=== PATIENT | female | born 1975 | race Caucasian/White ===

== ENCOUNTER 2021-11-29 21:27 | Emergency (ER) | payer OTHER, SELFPAY ==
--- NOTE | ~2021-11-29 | CT_ITS ---
EXAMINATION: CT HEAD WITHOUT CONTRAST CLINICAL INFORMATION: Severe headache, dizzy, hypertension. COMPARISON: None TECHNIQUE: Contiguous axial imaging was performed from the skull base to vertex without intravenous administration of contrast. Coronal and sagittal reformatted images were obtained. This CT examination was performed using dose optimization techniques as appropriate, variously including the following: *Automated exposure control *Adjustment of mA and/or kV according to patient size (this includes techniques or standardized protocols for targeted exams where dose is matched to indication/reason for exam; i.e. extremities or head) *Use of iterative reconstruction technique DLP: 695 mGy-cm FINDINGS: There is no evidence of acute intracranial hemorrhage or territorial infarction. No abnormal mass effect or midline shift is seen. [place] to white matter differentiation is well preserved. No extra-axial fluid collections are identified. The ventricles are normal in size. There is no abnormal attenuation within the brain parenchyma. The osseous structures and soft tissues are normal. Mild to moderate right foraminal, bilateral ethmoid, right sphenoid and right maxillary sinus mucosal thickening is seen. No air-fluid levels. The mastoid air cells are clear. CT/CT head/brain wo IV con IMPRESSION: 1. No acute intracranial pathology. 2. Mild to moderate inflammatory changes in the paranasal sinuses as detailed above.
--- NOTE | 2021-11-29 21:30 | ECG_ITS ---
Test Reason : DIZZY Blood Pressure : / mmHG Vent. Rate : 071 BPM Atrial Rate : 071 BPM P-R Int : 160 ms QRS Dur : 072 ms QT Int : 396 ms P-R-T Axes : 051 021 053 degrees QTc Int : 430 ms Normal sinus rhythm Normal ECG No previous ECGs available Referred By: Generic ED Physician Electronically Signed By:SUSIE HUTSON
[2021-11-29 21:32] VITALS: BP 206/77; PULSE 75; RESP 18; TEMP 37; O2SAT 100; BMI 30.2
[2021-11-29 21:58] LABS: Basophils Absolute Auto 0.1 X10*3/uL (0.0-0.2); Basophils Percent Auto 0.9 % (0-2); Eosinophils Absolute Auto 0.1 X10*3/uL (0.0-0.4); Eosinophils Percent Auto 1.2 % (0-4); Hematocrit 42.6 % (37.0-47.0); Imm Gran Abs Auto 0.02 X10*3/uL (0.00-0.03); Imm Gran Pct Auto 0.3 % (0.0-0.4); MANUAL DIFF FLAG NO; Mean Corpuscular HGB Conc 32.9 g/dl (31.0-35.0); Mean Corpuscular Hemoglobin 27.6 pg (27.0-33.0); Mean Corpuscular Volume 83.9 fL (80.0-98.0); Mean Platelet Volume 9.9 fL (9.4-12.3); Monocytes Absolute Auto 0.6 X10*3/uL (0.1-1.2); Monocytes Percent Auto 10.7 % (2-11); Neutrophils Absolute Auto 3.1 x10*3/uL (2.0-8.3); Neutrophils Percent Auto 52.9 % (45-73); Platelet Count 307 X10*3/uL (160-400); Red Blood Count 5.08 X10*6/uL (4.20-5.50); Red Cell Distribution Width 13.3 % (11.0-16.0); White Blood Count 5.8 X10*3/uL (4.8-10.8)
[2021-11-29 22:02] VITALS: BP 176/111; PULSE 72
[2021-11-29 22:13] LABS: Alanine Aminotransferase 21 U/L (0-31); Albumin Level 4.5 g/dL (3.5-5.0); Alkaline Phosphatase 102 U/L (39-117); Anion Gap 14 (12-20); Aspartate Amino Transferase 17 U/L (5-31); Bilirubin Direct < 0.2 mg/dL (0.0-0.5); Bilirubin Total 0.2 mg/dL (0.0-1.0); Blood Urea Nitrogen 13 mg/dL (9-16); Calcium 9.3 mg/dL (8.4-10.2); Carbon Dioxide 24 mmol/L (22-29); Chloride 104 mmol/L (96-108); Estimated Glomerular Filt Rate > 60; Glucose Random 111 mg/dL (60-115); Sodium 138 mmol/L (135-145); Total Protein 7.7 g/dL (6.5-8.0)
[2021-11-29 22:18] LABS: Troponin-I High Sensitivity 6.9 ng/L (<3.5-17.0)
--- NOTE | 2021-11-29 23:01 | ED_ITS ---
HPI - Headache General Chief Complaint: Headache Stated Complaint: Severe headache, dizzy, almost passed out Time Seen by Provider: 11/29/21 22:03 Source: patient Mode of arrival: ambulatory History of Present Illness HPI Narrative: 46-year-old female reports a history of migraines and denies any prior history of hypertension and is currently on clonidine/hydroxyzine/Raylar(sp?) And reports that approximately 17:00 this evening she developed acute onset of headache that she states encompasses her whole head with mild not but denies any photosensitivity which she would typically expect to get with her migraines. She otherwise denies any fever, chills, sore throat, abdominal pain, urinary symptoms. She denies any unilateral weakness/numbness/tingling or visual disturbances. Related Data Allergies Allergy/AdvReac Type Severity Reaction Status Date / Time No Known Allergies Allergy Verified 11/29/21 21:35 Review of Systems Review of Systems: Pertinent positives and negatives as stated in HPI and 10 point review of systems is otherwise negative. [facility] Past Medical History Source: nursing notes reviewed Social History Social History Advance Directives: No Advance Directives Information Provided: No Physical Exam Vital Signs: Vital Signs: Last Vital Signs Temp 98.6 F 11/29/21 21:32 Pulse 72 11/29/21 22:02 Resp 18 11/29/21 21:32 BP 176/111 H 11/29/21 22:02 Pulse Ox 100 11/29/21 21:32 O2 Del Method 11/29/21 21:32 BMI result Body Mass Index 30.2 VITAL SIGNS: Reviewed. GENERAL: Well developed, well nourished, in no acute distress. HEAD: Normocephalic/atraumatic EYES: PERRLA, EOMI EARS: Ext canals without abnormality OROPHARYNX: no oral lesions noted, posterior pharynx clear NECK: Supple, no adenopathy, no midline cervical spine tenderness LUNGS: Normal breath sounds. No adventitious sounds or accessory muscle use. SpO2<100> CARDIOVASCULAR: Regular rate and rhythm without noted murmurs ABDOMEN: Soft, non-tender, non-distended with bowel sounds. MUSCULOSKELETAL: No tenderness, deformities, or effusions noted on gross inspection. EXTREMITIES: No cyanosis, clubbing or edema. SKIN: Inspection of the skin reveals no rashes NEUROLOGIC: Alert and oriented x 4. Strength and sensation to light touch were grossly intact x 4, no facial asymmetry, no pronator drift, cranial nerves 2-12 grossly intact.. Course Course Course Narrative: 46-year-old female with history and clinical presentation consistent with headache, initially given patient's descriptions and her noted hypertension she was scan without evidence any acute pathology. On review of all investigations there are no acute findings and patient is otherwise nonfocal. On re-evaluation, patient is feeling much better and reports that she has been having some sinus congestion and pain for the past few days since Saturday but d enies any fevers or chills. She is otherwise discharged home in stable condition with suspected sinusitis. MDM - Headache Lab Data Result diagrams: 11/29/21 21:51 11/29/21 21:51 Labs: Lab Results 11/29/21 11/29/21 11/29/21 Range/Units 21:51 21:51 21:51 WBC 5.8 (4.8-10.8) X10*3/uL RBC 5.08 (4.20-5.50) X10*6/uL Hgb 14.0 (12.0-16.0) g/dl Hct 42.6 (37.0-47.0) % MCV 83.9 (80.0-98.0) fL MCH 27.6 (27.0-33.0) pg MCHC 32.9 (31.0-35.0) g/dl RDW 13.3 (11.0-16.0) % Plt Count 307 (160-400) X10*3/uL MPV 9.9 (9.4-12.3) fL Immature Gran % (Auto) 0.3 (0.0-0.4) % Neut % (Auto) 52.9 (45-73) % Lymph % (Auto) 34.0 (20-40) % [place] % (Auto) 10.7 (2-11) % Eos % (Auto) 1.2 (0-4) % Baso % (Auto) 0.9 (0-2) % Lymph # (Auto) 2.0 (1.2-4.9) X10*3/uL [place] # (Auto) 0.6 (0.1-1.2) X10*3/uL Eos # (Auto) 0.1 (0.0-0.4) X10*3/uL Baso # (Auto) 0.1 (0.0-0.2) X10*3/uL Abs Immat Gran (auto) 0.02 (0.00-0.03) X10*3/uL Absolute Neuts (auto) 3.1 (2.0-8.3) x10*3/uL Absolute Nucleated RBC 0.000 (0.0-0.012) X10*3/uL Nucleated RBC % (auto) 0.0 (0.0-0.2) /100WBC Sodium 138 (135-145) mmol/L Potassium 4.0 (3.3-5.1) mmol/L Chloride 104 (96-108) mmol/L Carbon Dioxide 24 (22-29) mmol/L Anion Gap 14 (12-20) BUN 13 (9-16) mg/dL Creatinine 0.76 (0.5-1.4) mg/dL Estim Creat Clear Calc 86.0 Estimated GFR > 60 Random Glucose 111 (60-115) mg/dL Calcium 9.3 (8.4-10.2) mg/dL Total Bilirubin 0.2 (0.0-1.0) mg/dL Direct Bilirubin < 0.2 (0.0-0.5) mg/dL AST 17 (5-31) U/L ALT 21 (0-31) U/L Alkaline Phosphatase 102 (39-117) U/L Troponin I High Sens 6.9 (<3.5-17.0) ng/L Total Protein 7.7 (6.5-8.0) g/dL Albumin 4.5 (3.5-5.0) g/dL Beta HCG, Quant < 2 mIU/mL Discharge Plan Discharge Clinical Impression: Headache, Sinusitis Patient Disposition: Home, Self-Care Instructions: General Headache (ED), Sinusitis (ED) Additional Instructions: 1. Resume all home medications as prescribed. 2. Recommend that you use [id number] saline spray for your nose and nasal congestion. Also consider a bedside cool mist humidifier for additional moisture in the air. 3. Follow-up with your primary care provider in the next 1-2 days for re-evalua tion and further outpatient management. Return to the ER for worsening symptoms. Stand Alone Forms: Work/School Release
[2021-11-29] MEDS: diphenhydrAMINE HCL 50 MG/ML VIAL 25 MG IVPUSH (23:14)
[2021-11-29] MEDS: Metoclopramide HCl 10 MG/2 ML VIAL IVPUSH (23:14)
[2021-11-29] MEDS: Ketorolac Tromethamine 30 MG/ML VIAL 15 MG IVPUSH (23:14)
[2021-11-29] MEDS: Acetaminophen 325 MG TABLET 975 MG PO (23:15)
[2021-11-29 23:25] LABS: HCG Quantitative < 2 mIU/mL
[2021-11-29] MEDS: Butalb/Acetamin/Caff 50/325/40 TABLET 1 TAB PO (23:34)
[2021-11-30 00:28] VITALS: BP 167/92; PULSE 54; RESP 16; O2SAT 98
--- NOTE | 2021-11-30 00:35 | PC.NURSE ---
Reviewed discharge instructions with pt. pt verbalized understanding.
== END 2021-11-30 00:36 | disposition home or self-care (01) ==
PROVIDERS: Emergency Provider Student in an Organized Health Care Education/Training Program
DX: R51.9 Headache, unspecified (principal); J32.9 Chronic sinusitis, unspecified; I10 Essential (primary) hypertension
CPT/HCPCS: 36415; 70450; 80053; 82248; 84484; 84702; 85025; 93005; 96374; 96375; 99284; 99285; J1200; J1885; J2765

== ENCOUNTER 2022-03-02 11:42 | Emergency (ER) | payer OTHER, SELFPAY ==
[2022-03-02 11:50] VITALS: BP 101/37; PULSE 62; RESP 18; TEMP 36.2; O2SAT 96; BMI 24.7
[2022-03-02 13:01] VITALS: BP 107/52; PULSE 57; RESP 16; TEMP 36.6; O2SAT 98
[2022-03-02 13:38] VITALS: BP 107/67; PULSE 57; RESP 18; O2SAT 100
--- NOTE | 2022-03-02 14:35 | ED.BACK ---
HPI - Back Pain/Injury General Chief Complaint: Back Pain/Injury Stated Complaint: fall down stairs T-1/back pain/vomiting Time Seen by Provider: 03/02/22 12:58 History of Present Illness HPI Narrative: Patient complains of back pain after a fall she was coming down the stairs and slipped and fell down on her back with pain in both upper and lower back, no numbness no weakness no tingling no radiation of pain no change to bowel or bladder, she did not hit her head or her neck Related Data Previous Rx's Medication Instructions Recorded acetaminophen 500 mg tablet 1,000 mg PO QID PRN pain #30 tabs 03/02/22 cyclobenzaprine 5 mg tablet 5 mg PO TID PRN muscle spasm #10 03/02/22 tabs oxycodone 5 mg tablet 5 mg PO Q6H PRN pain #10 tabs 03/02/22 Allergies Allergy/AdvReac Type Severity Reaction Status Date / Time No Known Allergies Allergy Verified 11/29/21 21:35 Review of Systems Review of Systems: Yes all other systems are reviewed and are negative COUNTS INCLUDE 234 BEDS AT THE [facility] Social History Social History Advance Directives: No Advance Directives Information Provided: No Physical Exam Vital Signs: Vital Signs: Last Vital Signs Temp 98 F 03/02/22 13:01 Pulse 57 03/02/22 13:38 Resp 18 03/02/22 13:38 BP 107/67 03/02/22 13:38 Pulse Ox 100 03/02/22 13:38 O2 Del Method 03/02/22 13:38 BMI result Body Mass Index 24.7 General appearance is no distress Head is normocephalic atraumatic Neck is supple nontender Chest nontender Respiratory no distress Chest clear to auscultation bilateral no rib tenderness Heart no murmur Abdomen is soft nontender The back had bilateral lower lumbar paraspinal tenderness no bony tenderness, pain reproduced with movement Extremities full range of motion x4 Neuro no focal motor sensory deficits Course Course Course Narrative: Patient with musculoskeletal back pain, no neurologic deficit no change to bowel or bladder no bony tenderness likely muscle strain Discharge Plan Discharge Clinical Impression: Back pain, Fall Patient Disposition: Home, Self-Care Additional Instructions: No sign of any broken bone or dangerous injury now The medication prescribed is sedating so 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 Stand Alone Forms: Work/School Release Interventions: ED Discharge Assessment Last Done: 03/02/22 14:45 Discharge Date/Time: 03/02/22 14:46
== END 2022-03-02 14:46 | disposition home or self-care (01) ==
PROVIDERS: Emergency Provider Student in an Organized Health Care Education/Training Program
DX: M54.50 Low back pain, unspecified (principal); Z79.899 Other long term (current) drug therapy
CPT/HCPCS: 99283

== ENCOUNTER 2023-09-16 10:31 | Emergency (ER) | payer OTHER, SELFPAY ==
--- NOTE | ~2023-09-16 | CT_ITS ---
EXAMINATION: CT LUMBAR SPINE WITHOUT CONTRAST CLINICAL INFORMATION: Pain radiating down right leg COMPARISON: None available TECHNIQUE: A multidetector CT acquisition of the lumbar spine is obtained without contrast. This CT examination was performed using dose optimization techniques as appropriate, variously including the following: *Automated exposure control *Adjustment of mA and/or kV according to patient size (this includes techniques or standardized protocols for targeted exams where dose is matched to indication/reason for exam; i.e. extremities or head) *Use of iterative reconstruction technique DLP: 341.77 mGy-cm mGy-cm FINDINGS: Normal lumbar lordosis is preserved. No significant spondylolisthesis. Vertebral body heights are maintained. There is no suspicious osseous lesion. Please note that canal patency is not well assessed on this examination due to inherent limitations of CT without intrathecal contrast. Within these limitations, multilevel degenerative changes with level by level detail are as follows: L1-L2: Trace disc bulge and osteophytic ridging which indents the ventral thecal sac without significant canal stenosis. The neural foramen are patent. L2-L3: Trace disc bulge and osteophytic ridging which indents the ventral thecal sac which is not significantly narrowed. The neural foramen remain patent. L3-L4: Trace disc bulge and osteophytic ridging. The spinal canal and neural foramen are not significantly narrowed. L4-L5: Trace disc bulge. The spinal canal and neural foramen are not significantly narrowed. L5-S1: Disc bulge and facet arthropathy. The spinal canal is not significantly narrowed. Mild narrowing of the neural foramen. Limited intra-abdominal evaluation is within normal limits. CT/CT lumbar spine wo IV con IMPRESSION: Please note that canal patency is not well assessed on this examination due to inherent limitations of CT without intrathecal contrast. Within these limitations, no high-grade spinal canal or neural foraminal stenosis is visualized. MRI is suggested for further evaluation if symptoms persist.
[2023-09-16 11:14] VITALS: BP 143/76; PULSE 83; RESP 14; TEMP 36.8; O2SAT 100; BMI 25.6
--- NOTE | 2023-09-16 11:41 | ED.GENADULT ---
HPI - General Adult General Chief complaint: Back Pain/Injury Stated complaint: back pain Time Seen by Provider: 09/16/23 11:29 Source: patient Mode of arrival: ambulatory Limitations: no limitations History of Present Illness HPI narrative: Patient is a 48-year-old female presenting to the emergency department with complaint of right lower back pain radiating down right leg. Patient reports that she had a fall 1 year ago and was evaluated after the fall but states that her primary evaluation was focused on her wrist fracture and states she did not have any imaging of her back at that time. She denies any recent falls or other trauma. Denies any recent heavy lifting or twisting. States she had 1 episode of numbness/tingling radiating down right leg. Denies any saddle anesthesia or bowel or bladder incontinence. Denies fevers, IV drug use, history of cancer. Has been using ibuprofen with little relief. States pain has progressively been worsening over the past 3 weeks. MD complaint: back pain Onset (ago): week(s) Location: back Radiation: distal Severity: severe Quality: aching Pain Consistency: constant Relieving factors: none Exacerbating factors: movement Treatments prior to arrival: NSAID Related Data Previous Rx's Medication Instructions Recorded acetaminophen 500 mg tablet 1,000 mg (2 x 500 mg) PO QID PRN 03/02/22 pain #30 tabs cyclobenzaprine 5 mg tablet 5 mg PO TID PRN muscle spasm #10 03/02/22 tabs oxycodone 5 mg tablet 5 mg PO Q6H PRN pain #10 tabs 03/02/22 cyclobenzaprine 10 mg tablet 10 mg PO TID PRN muscle spasm #20 09/16/23 tabs Allergies Allergy/AdvReac Type Severity Reaction Status Date / Time No Known Allergies Allergy Unverified 03/09/22 16:18 [No Known Allergies*] Review of Systems Review of Systems: As per HPI. Yes all other systems are reviewed and are negative Constitutional: Constitutional: Reports as per HPI [facility] Social History Social History (System 03/09/22 @ 16:18 by John Moreno) Advance Directives: No Advance Directives Information Provided: No Physical Exam ED Vital Signs: Vital Signs - 24 hr 09/16/23 11:14 09/16/23 19:37 Temperature 98.2 F 97.4 F Pulse Rate 83 50 Respiratory Rate 14 16 Blood Pressure 143/76 H 105/43 L Pulse Oximetry 100 99 Oxygen Delivery Method Room Air Room Air BMI result Body Mass Index 25.6 Vital signs have been reviewed and appear to be correct. Blood pressure normal. Heart rate normal. Respiratory rate normal. Temperature normal. Oxygen saturation normal. Const General: cooperative, healthy appearing and no acute distress Orientation/consciousness: oriented to person, oriented to place, oriented to time and patient oriented x3 Limitations: no limitations HENMT Head: Yes normocephalic and Yes atraumatic Ears: external ears normal General nose exam: Normal external nose present Face and sinus: Yes face symmetric Mouth: oropharynx normal and moist mucous membranes Throat: Yes uvula midline Eyes Pupils: Equal, round and reactive pupils present Neck Neck: Yes normal visual inspection, Yes no meningeal signs and Yes supple Resp Effort & Inspection: normal respiratory effort and able to speak in complete sentences Auscultation: clear to auscultation bilaterally Cardio Rate: regular rate Rhythm: regular rhythm Heart sounds: S1 normal heart sound present and S2 normal heart sound present GI Palpation (GI): Soft to palpation and nontender Auscultation: normoactive bowel sounds General: Yes no CVA tenderness Back/Spine/Pelvis Back: no CVA tenderness Thoracic/Lumbar Spine: thoracic and lumbar spine normal to inspection, thoraco-lumbar ROM normal, straight leg raise negative bilaterally, pain with thoraco-lumbar ROM, paraspinal muscle tenderness on the right in the upper lumbar and in the mid lumbar, No thoracic spinal tenderness and No lumbar spinal tenderness Sacroiliac joints: on the right tender to palpation Skin General skin exam: elasticity normal and turgor normal Neuro General: oriented to person, oriented to place, oriented to time, patient oriented x3, gait normal, tone normal, moves all extremities, Normal light touch and pain sensation, no meningeal signs, no focal motor deficits, CN's II-XI intact bilaterally and deep tendon reflexes 2+ bilaterally Cranial nerves: Yes Equal, round and reactive pupils present Cognition (Neuro): normal cognition Gait exam (Neuro): Normal gait present Motor exam (neuro): 5/5 motor strength present throughout, Normal motor muscle tone present throughout and Motor abnormalities not present Sensory Exam: Normal double simultaneous stimulation for sensation Extrem General: Yes full ROM, Yes no pedal edema and Yes no calf tenderness Psych Mental Status: mental status grossly normal Affect: normal affect Thought process: Normal thought process present Course Reevaluation(s) Reevaluation #1: Received patient in sign-out. At this time she is requesting to go home. Reports that she plans to follow-up closely with her primary care provider and discuss physical therapy with her. She does report that she had some relief from muscle relaxer while in the ED and is requesting a prescription for this which I think is reasonable. Prescription for cyclobenzaprine was sent to her pharmacy. Ambulatory with a steady gait. Stable for discharge. Time: 20:38 Medications Administered Discontinued Medications Generic Name Dose Route Start Last Admin Trade Name Freq PRN Reason Stop Dose Admin Cyclobenzaprine HCl 10 mg 09/16/23 12:12 09/16/23 12:28 Cyclobenzaprine Hcl 10 Mg Tablet PO 09/16/23 12:13 10 mg ONCE ONE Administration Ketorolac Tromethamine 30 mg 09/16/23 18:08 09/16/23 19:30 Ketorolac Tromethamine 30 Mg/Ml Vial IM 09/16/23 18:09 30 mg ONCE ONE Administration Oxycodone HCl 5 mg 09/16/23 12:12 09/16/23 12:28 Oxycodone Hcl Immed Release 5 Mg Tablet PO 09/16/23 12:13 5 mg ONCE ONE Administration Prednisone 40 mg 09/16/23 12:12 09/16/23 12:28 Prednisone 20 Mg Tablet PO 09/16/23 12:13 40 mg ONCE ONE Administration Medical Decision Making Medical Decision Making MDM Narrative: Patient is a 48-year-old female presenting to the emergency department with complaint of right lower back pain radiating down right leg. On exam patient is awake, A+Ox3, VS WNL, afebrile, normal neurological exam without focal deficits, physical exam findings as above. Given reported symptoms and physical exam findings, initial differential includes lumbar strain, lumbar radiculopathy, degenerative disc disease, disc herniation, spinal stenosis, spondylosis. Less likely vertebral fracture, UTI. Do not suspect malignancy/mass, SEA, cauda equina/cord compression. CT notable for trace disc bulges and facet arthropathy. My interpretation is in agreement with the radiologist's interpretation. Patient updated on results of CT scan, states has not obtained any pain relief with medications given in the emergency department. Discussed possible admission for pain control which patient states she would prefer as she has been unable to sleep due to pain. Case discussed with Dr. Farrell who will come to the ED to evaluate patient. Will order basic labs. Patient signed out to [facility] pending likely admission. Differential Diagnosis Differential Diagnoses: The differential diagnosis associated with the presentation includes As per [facility] Admission/Observation Consideration of admission/observation: Escalation of care including admission/observation considered Patient would have been admitted to the hospital had their work up had any findings where hospital admission was appropriate and their clinical presentation warranted hospital admission. Lab Data 09/16/23 19:48 09/16/23 19:48 Labs: Lab Results 09/16/23 09/16/23 Range/Units 15:55 19:48 WBC 8.0 (4.8-10.8) X10*3/uL RBC 4.46 (4.20-5.50) X10*6/uL Hgb 12.8 (12.0-16.0) g/dl Hct 40.2 (37.0-47.0) % MCV 90.1 (80.0-98.0) fL MCH 28.7 (27.0-33.0) pg MCHC 31.8 (31.0-35.0) g/dl RDW 13.9 (11.0-16.0) % Plt Count 415 H D (160-400) X10*3/uL MPV 10.0 (9.4-12.3) fL Immature Gran % (Auto) 0.3 (0.0-0.4) % Neut % (Auto) 85.9 H (45-73) % Lymph % (Auto) 10.9 L (20-40) % [place] % (Auto) 2.3 (2-11) % Eos % (Auto) 0.1 (0-4) % Baso % (Auto) 0.5 (0-2) % Lymph # (Auto) 0.9 L (1.2-4.9) X10*3/uL [place] # (Auto) 0.2 (0.1-1.2) X10*3/uL Eos # (Auto) 0.0 (0.0-0.4) X10*3/uL Baso # (Auto) 0.0 (0.0-0.2) X10*3/uL Abs Immat Gran (auto) 0.02 (0.00-0.03) X10*3/uL Absolute Neuts (auto) 6.8 (2.0-8.3) x10*3/uL Absolute Nucleated RBC 0.000 (0.0-0.012) X10*3/uL Nucleated RBC % (auto) 0.0 (0.0-0.2) /100WBC Sodium 138 (135-145) mmol/L Potassium 4.0 (3.3-5.1) mmol/L Chloride 104 (96-108) mmol/L Carbon Dioxide 27 (22-29) mmol/L Anion Gap 11 L (12-20) BUN 13 (9-16) mg/dL Creatinine 0.72 (0.5-1.4) mg/dL Estim Creat Clear Calc 82.1 Estimated GFR > 60 Random Glucose 126 H (60-115) mg/dL Calcium 8.9 (8.4-10.2) mg/dL Total Bilirubin 0.2 (0.0-1.0) mg/dL AST 15 (5-31) U/L ALT 16 (0-31) U/L Alkaline Phosphatase 82 (39-117) U/L Total Protein 7.2 (6.5-8.0) g/dL Albumin 4.1 (3.5-5.0) g/dL Urine Color Yellow Urine Appearance Cloudy Urine pH 5.0 (5.0-9.0) Ur Specific [place] 1.025 (1.005-1.025) Urine Protein Negative (Neg-Trace) mg/dL Urine Glucose (UA) Negative (Negative) mg/dL Urine Ketones Negative (Negative) mg/dL Urine Blood Negative (Negative) Urine Nitrite Negative (Negative) Ur Leukocyte Esterase Negative (Negative) Urine Test NEGATIVE (NEGATIVE) Independent Interpretation I performed an independent interpretation of an: CT Scan Radiology Impression Discussion of test interpretation with radiology: I have reviewed the radiologist's reading. Radiologist Impression: FINDINGS: Normal lumbar lordosis is preserved. No significant spondylolisthesis. Vertebral body heights are maintained. There is no suspicious osseous lesion. Please note that canal patency is not well assessed on this examination due to inherent limitations of CT without intrathecal contrast. Within these limitations, multilevel degenerative changes with level by level detail are as follows: L1-L2: Trace disc bulge and osteophytic ridging which indents the ventral thecal sac without significant canal stenosis. The neural foramen are patent. L2-L3: Trace disc bulge and osteophytic ridging which indents the ventral thecal sac which is not significantly narrowed. The neural foramen remain patent. L3-L4: Trace disc bulge and osteophytic ridging. The spinal canal and neural foramen are not significantly narrowed. L4-L5: Trace disc bulge. The spinal canal and neural foramen are not significantly narrowed. L5-S1: Disc bulge and facet arthropathy. The spinal canal is not significantly narrowed. Mild narrowing of the neural foramen. Limited intra-abdominal evaluation is within normal limits. CT/CT lumbar spine wo IV con IMPRESSION: Please note that canal patency is not well assessed on this examination due to inherent limitations of CT without intrathecal contrast. Within these limitations, no high-grade spinal canal or neural foraminal stenosis is visualized. MRI is suggested for further evaluation if symptoms persist. Discharge Plan Discharge Clinical Impression: Lumbar radiculopathy Patient Disposition: Home, Self-Care Instructions: Lumbar Radiculopathy (ED) Additional Instructions: Follow-up with your primary care provider. You may return back to emergency department any new or worsening symptoms or concerns. You can take ibuprofen 200 mg, 3 tablets (600mg) every 6-8 hours as needed for pain, in addition to Tylenol 500 mg, 2 tablets (1,000mg) every 4-6 hours as needed for pain, but not to exceed 3 doses daily (3,000mg).? A prescription for a muscle relaxer, cyclobenzaprine was sent to your pharmacy. This medication may make you drowsy, should not drive, drink alcohol, or work while taking this medication. Prescriptions: New cyclobenzaprine 10 mg tablet 10 mg PO TID PRN (Reason: muscle spasm) Qty: 20 0RF No Action cyclobenzaprine 5 mg tablet 5 mg PO TID PRN (Reason: muscle spasm) Qty: 10 0RF acetaminophen 500 mg tablet 1,000 mg PO QID PRN (Reason: pain) Qty: 30 0RF oxycodone 5 mg tablet 5 mg PO Q6H PRN (Reason: pain) Qty: 10 0RF Rx Instructions: Partial Fill upon patient request. Stand Alone Forms: Work/School Release
[2023-09-16] MEDS: oxyCODONE HCl Immed Release 5 MG TABLET PO (12:28)
[2023-09-16] MEDS: Cyclobenzaprine HCl 10 MG TABLET PO (12:28)
[2023-09-16] MEDS: predniSONE 20 MG TABLET 40 MG PO (12:28)
--- NOTE | 2023-09-16 12:31 | PC.NURSE ---
patient medicated per the MAR. provided with water to give urine sample
--- NOTE | 2023-09-16 14:19 | PC.NURSE ---
offered more water to provide urine sample. patient was able to ambulate independently to bathroom previously to provide urine sample, unable to do so
[2023-09-16 16:02] LABS: Appearance Urine Cloudy; Color Urine Yellow; Glucose Urine UA Negative (Negative); Leukocyte Esterase Urine Negative (Negative); Nitrite Urine Negative (Negative); Specific Gravity - Urine 1.025 (1.005-1.025); Urine Blood Negative (Negative); Urine Ketones Negative (Negative); Urine Protein Negative (Neg-Trace)
[2023-09-16 16:11] LABS: UPreg QC Valid YES; Urine Pregnancy NEGATIVE (NEGATIVE)
[2023-09-16] MEDS: Ketorolac Tromethamine 30 MG/ML VIAL IM (19:30)
[2023-09-16 19:37] VITALS: BP 105/43; PULSE 50; RESP 16; TEMP 36.3; O2SAT 99
[2023-09-16 19:53] LABS: MANUAL DIFF FLAG NO
[2023-09-16 20:06] LABS: Basophils Percent Auto 0.5 % (0-2); Eosinophils Percent Auto 0.1 % (0-4); Hematocrit 40.2 % (37.0-47.0); Hemoglobin 12.8 g/dl (12.0-16.0); Imm Gran Abs Auto 0.02 X10*3/uL (0.00-0.03); Imm Gran Pct Auto 0.3 % (0.0-0.4); Lymphocytes Absolute Auto 0.9 X10*3/uL (1.2-4.9); Lymphocytes Percent Auto 10.9 % (20-40); Mean Corpuscular HGB Conc 31.8 g/dl (31.0-35.0); Mean Corpuscular Hemoglobin 28.7 pg (27.0-33.0); Mean Corpuscular Volume 90.1 fL (80.0-98.0); Monocytes Absolute Auto 0.2 X10*3/uL (0.1-1.2); Monocytes Percent Auto 2.3 % (2-11); Neutrophils Absolute Auto 6.8 x10*3/uL (2.0-8.3); Neutrophils Percent Auto 85.9 % (45-73); Platelet Count 415 X10*3/uL (160-400); Red Blood Count 4.46 X10*6/uL (4.20-5.50); Red Cell Distribution Width 13.9 % (11.0-16.0)
[2023-09-16 20:10] LABS: Alanine Aminotransferase 16 U/L (0-31); Albumin Level 4.1 g/dL (3.5-5.0); Alkaline Phosphatase 82 U/L (39-117); Anion Gap 11 (12-20); Aspartate Amino Transferase 15 U/L (5-31); Bilirubin Total 0.2 mg/dL (0.0-1.0); Blood Urea Nitrogen 13 mg/dL (9-16); Calcium 8.9 mg/dL (8.4-10.2); Carbon Dioxide 27 mmol/L (22-29); Chloride 104 mmol/L (96-108); Creatinine Clr Calc Pharmacy 82.1; Estimated Glomerular Filt Rate > 60; Glucose Random 126 mg/dL (60-115); Sodium 138 mmol/L (135-145); Total Protein 7.2 g/dL (6.5-8.0)
[2023-09-16 20:49] VITALS: BP 114/67; PULSE 59; RESP 16; TEMP 36.2; O2SAT 100
== END 2023-09-16 20:50 | disposition home or self-care (01) ==
PROVIDERS: Registered Nurse Emergency; Emergency Provider Emergency Medicine
DX: M54.16 Radiculopathy, lumbar region (principal)
CPT/HCPCS: 36415; 72132; 80053; 81003; 81025; 85025; 96372; 99284; J1885

== ENCOUNTER 2023-09-23 21:42 | Emergency (ER) | payer OTHER, SELFPAY ==
--- NOTE | 2023-09-23 | ECG_ITS ---
Test Reason : LOWER BACK PAIN Blood Pressure : / mmHG Vent. Rate : 098 BPM Atrial Rate : 098 BPM P-R Int : 140 ms QRS Dur : 074 ms QT Int : 360 ms P-R-T Axes : 064 039 061 degrees QTc Int : 459 ms Normal sinus rhythm Possible Left atrial enlargement Borderline ECG When compared with ECG of 29-NOV-2021 21:33, No significant change was found Referred By: Generic ED Physician Electronically Signed By:ISREAL YEBOAH MD
[2023-09-23 22:00] VITALS: BP 206/114; PULSE 129; RESP 20; TEMP 37.1; O2SAT 98; BMI 25.1
[2023-09-23 22:44] LABS: MANUAL DIFF FLAG NO
[2023-09-23 23:01] LABS: Basophils Absolute Auto 0.1 X10*3/uL (0.0-0.2); Basophils Percent Auto 1.1 % (0-2); Eosinophils Absolute Auto 0.1 X10*3/uL (0.0-0.4); Eosinophils Percent Auto 1.1 % (0-4); Hematocrit 40.6 % (37.0-47.0); Hemoglobin 13.6 g/dl (12.0-16.0); Imm Gran Abs Auto 0.01 X10*3/uL (0.00-0.03); Imm Gran Pct Auto 0.2 % (0.0-0.4); Lymphocytes Absolute Auto 2.1 X10*3/uL (1.2-4.9); Lymphocytes Percent Auto 38.8 % (20-40); Mean Corpuscular HGB Conc 33.5 g/dl (31.0-35.0); Mean Corpuscular Hemoglobin 29.3 pg (27.0-33.0); Mean Corpuscular Volume 87.5 fL (80.0-98.0); Monocytes Absolute Auto 0.4 X10*3/uL (0.1-1.2); Monocytes Percent Auto 8.3 % (2-11); Neutrophils Absolute Auto 2.7 x10*3/uL (2.0-8.3); Neutrophils Percent Auto 50.5 % (45-73); Platelet Count 347 X10*3/uL (160-400); Red Blood Count 4.64 X10*6/uL (4.20-5.50); Red Cell Distribution Width 13.5 % (11.0-16.0); White Blood Count 5.3 X10*3/uL (4.8-10.8)
[2023-09-23 23:06] LABS: Alanine Aminotransferase 21 U/L (0-31); Albumin Level 4.7 g/dL (3.5-5.0); Alkaline Phosphatase 83 U/L (39-117); Anion Gap 14 (12-20); Aspartate Amino Transferase 17 U/L (5-31); Bilirubin Total 0.1 mg/dL (0.0-1.0); Blood Urea Nitrogen 8 mg/dL (9-16); Calcium 9.1 mg/dL (8.4-10.2); Carbon Dioxide 21 mmol/L (22-29); Chloride 106 mmol/L (96-108); Creatinine Clr Calc Pharmacy 86.1; Estimated Glomerular Filt Rate > 60; Glucose Random 96 mg/dL (60-115); HCG Quantitative < 2 mIU/mL; Potassium 3.6 mmol/L (3.3-5.1); Sodium 137 mmol/L (135-145); Total Protein 8.1 g/dL (6.5-8.0)
[2023-09-24 02:17] VITALS: BP 159/103; PULSE 82; RESP 20; TEMP 36.9; O2SAT 99
== END 2023-09-24 03:13 | disposition left against medical advice (07) ==
PROVIDERS: Emergency Provider Emergency Medicine
DX: M54.50 Low back pain, unspecified (principal); R94.31 Abnormal electrocardiogram [ECG] [EKG]; Z79.899 Other long term (current) drug therapy
CPT/HCPCS: 36415; 80053; 84702; 85025; 93005; 99283

== ENCOUNTER → 2023-09-23 22:30 | Outpatient (BNV) | payer OTHER, SELFPAY | PROVIDERS: Emergency Provider Emergency Medicine; Visit Provider Internal Medicine Cardiovascular Disease | DX: M54.50 Low back pain, unspecified (principal) | CPT/HCPCS: 93010 ==

== ENCOUNTER 2023-10-04 09:22 | Outpatient (AMB) | payer OTHER, SELFPAY ==
--- NOTE | 2023-10-04 09:24 | A.SPINEOV_ITS ---
Intake Intake Visit Reasons: low back pain Intake Note: Ms. Acevedo is here today c/o low back pain Medical Reimbursement Specialist Required: No Allergies No Known Allergies [No Known Allergies*] Allergy (Verified 10/04/23 09:25) Assessment & Plan Assessment & Plan (1) Lumbar radiculopathy: Code(s): M54.16 - Radiculopathy, lumbar region Plan This is a 48-year-old female who is following up after a visit to the emergency room a couple weeks ago. She had a fall last year where she fractured her wrist, and at that time started to feel some right-sided low back pain. Over the course of the ensuing months, she tried to treat this with conservative management including physical therapy, chiropractic and acupuncture etc.. Sometime around May, she was sitting on the floor and when she went to get up she immediately felt acute pain on the same right side of her low back but now started to radiate back into the posterior part of her leg down into her calf and foot. There was tingling and numbness associated with this. Again she tried all the conservative treatments including PT, Motrin, Excedrin, Tylenol. She has a very hard time sleeping and the pain is only continued to escalate. Her foot goes numb. She is very frustrated with her quality of life. She was in the emergency room a few weeks ago because had flared up. They tried her on some pain medications etc. but again this has not prove to be any kind of long- term benefit for her. She did have a CT scan but that did not yield any meaningful information. PMH: Otherwise healthy, she had a wrist fracture with an ORIF last year after her fall and tubal ligation Social hx: She smokes about 5-6 cigarettes a day, smokes marijuana once a week or so, does not drink any significant amount of alcohol Medications: She takes [id number]-vvpildt medications like Excedrin, Motrin and takes hydroxyzine and clonidine help her sleep Allergies: None Physical exam: Positive straight leg raise at 15 degrees, strength is normal, gait is antalgic, absent right Achilles reflex Imaging review: CT scan done in the emergency room, shows some mild degenerative disc disease, but the limitations of CT do not allow any thorough evaluation of the spinal canal. Impression: 48-year-old female who fell last year and suffered right-sided low back pain, sometime in May this transition to a radiculopathy which sounds like an S1 radiculopathy. She does have an absent Achilles reflex in his still in significant amounts of pain. She trialed conservative treatment and at this point an MRI is appropriate. I will order that and see her back once it is completed. Thank you for allowing us to care for your patient. The total time spent with this visit with this patient was 45 minutes reviewing history, physical exam, CT scan imaging review, and implementation of treatment plan or further diagnostic testing David Mcclure MD,PhD [facility] Orders: Orders MR lumbar spine wo con Today M54.16 - Radiculopathy, lumbar region Coding Level of Care Code New Pt Level 4 (21574) Diagnoses Lumbar radiculopathy M54.16
== END 2023-10-04 09:44 | disposition home or self-care (01) ==
LOC: HO.HNS 09:22
PROVIDERS: PCP Internal Medicine; Referring Provider Internal Medicine; Visit Provider Physician Assistant
DX: M54.16 Radiculopathy, lumbar region (principal)
CPT/HCPCS: 99204

== ENCOUNTER → 2023-10-04 09:22 | Outpatient (BNVA) | payer OTHER, SELFPAY | PROVIDERS: Visit Provider Physician Assistant | DX: M54.16 Radiculopathy, lumbar region (principal) | CPT/HCPCS: 99202 ==

== ENCOUNTER 2023-10-22 16:50 | Outpatient (REF) | payer OTHER, SELFPAY ==
--- NOTE | ~2023-10-22 | MR_ITS ---
EXAMINATION: MR LUMBAR SPINE WITHOUT CONTRAST CLINICAL INFORMATION: 48-year-old with lumbar radiculopathy. Low back pain and bilateral leg pain and weakness. COMPARISON: 09/16/2023 CT TECHNIQUE: MRI of the lumbar spine was obtained using routine sequences without contrast. FINDINGS: CORONAL ALIGNMENT: Mild upper lumbar dextrocurvature noted, slightly convex to the right at L2-L3 and partially imaged lower thoracic levocurvature, unchanged. SAGITTAL ALIGNMENT: Normal. LUMBOSACRAL JUNCTION: Normal. There are 5 [id number] lumbar-type vertebral bodies. VERTEBRAL BODIES: Well maintained with normal height. No compression fractures, anomalies or other deformities. DISC SPACES AND ENDPLATES: The intervertebral disc space heights and signal are predominantly well-maintained throughout the lumbar spine. Endplates appear intact. There are minor degrees of anterolateral spondylosis throughout the lumbar spine similar to previous CT. SPINAL CANAL: No abnormal developmental findings. BONE MARROW: Bone marrow signal intensity within the lumbar spine is within normal limits. Note is made of a 1.6 cm zone of crescent-shaped marrow edema adjacent to the superior endplate of T11 on the right with possible paravertebral spondylosis at this level which is not well visualized. MRI of the thoracic spine is recommended to further assess. CONUS MEDULLARIS: Terminates at L1. Morphology and signal is normal. INTRADURAL NERVE ROOTS: Within normal limits. SPINAL LEVELS L5-S1: Minor annular bulging is noted. Mild bilateral facet joint arthropathy is noted with ligamentum flavum thickening. There is a conjoined nerve root sleeve on the left involving the L5 and S1 nerve roots. No significant canal stenosis. Mild narrowing of the proximal left neural foramen is noted, slightly encroaching on the conjoined nerve root sleeve. L4-L5: Trace annular bulging with slight flattening of the dural sac is noted with mild ligamentum flavum thickening without significant canal or neural foraminal stenosis. L3-L4: No significant disc bulge or herniation. No significant facet arthrosis, canal or foraminal stenosis. L2-L3: Shallow, small central to right paramedian disc protrusion with minimal indentation of the ventral thecal sac. No significant facet arthrosis, canal or neural foraminal stenosis. L1-L2: Very small left paramedian disc osteophyte complex. No facet arthrosis, canal or neural foraminal stenosis. PARAVERTEBRAL AND INCLUDED EXTRASPINAL SOFT TISSUES: The visualized paravertebral soft tissues and included retroperitoneal structures are unremarkable within the limitations of the exam. MR/MR lumbar spine wo con IMPRESSION: 1. Mild S-shaped thoracolumbar scoliotic curvature as described above. 2. Minimal degrees of disc bulging at L5-S1 and L4-L5 and a small central to right paramedian disc protrusion at L2-L3 without spinal canal stenosis or neural impingement. 3. Mild bilateral facet joint arthropathy at L5-S1 and a conjoined nerve root sleeve on the left at L5-S1. No significant spinal canal stenosis. Mild narrowing of the proximal left neural foramen at L5-S1, slightly encroaching on the conjoined nerve root sleeve. 4. Partially imaged marrow edema adjacent to the superior endplate of T11 on the right which is nonspecific and may be associated with right paravertebral spondylosis. MRI of the thoracic spine is recommended to further assess this.
== END 2023-10-22 16:51 | disposition home or self-care (01) ==
LOC: HO.MRI 16:50
PROVIDERS: PCP Internal Medicine; Visit Provider Physician Assistant
DX: M54.16 Radiculopathy, lumbar region (principal)
CPT/HCPCS: 72148